=== PATIENT | female | born 1960 | race Native Hawaiian/Other Pacific Islander ===

== ENCOUNTER 2018-11-02 09:49 | Outpatient (CLI) | payer BC | END 2018-11-02 23:15 | disposition home or self-care (01) | LOC: MAMMO 09:49 | DX: Z12.31 Encounter for screening mammogram for malignant neoplasm of breast (principal) ==

== ENCOUNTER 2021-09-10 16:26 | Outpatient (CLI) | payer BC | END 2021-09-10 19:02 | disposition home or self-care (01) | LOC: RAD 16:26 | PROVIDERS: ATTEND Nurse Practitioner Family | DX: R60.0 Localized edema (principal) ==

== ENCOUNTER 2022-07-07 10:03 | Outpatient (CLI) | payer BC | END 2022-07-07 19:01 | disposition home or self-care (01) | LOC: RAD 10:03 | PROVIDERS: ATTEND Nurse Practitioner Family | DX: R06.02 Shortness of breath (principal); R06.2 Wheezing; Z86.16 Personal history of COVID-19; Z09 Encounter for follow-up examination after completed treatment for conditions other than malignant neoplasm ==